=== PATIENT | female | born 1950 | race Caucasian/White ===

== ENCOUNTER 2017-03-07 11:28 | Inpatient (IN) | payer MEDICARE ==
[~2017-03-07] VITALS: Ht 175.3 cm; Wt 68.9 kg
[2017-03-07] VITALS (9 sets, daily range): BP systolic 124–234; BP diastolic 71–95; PULSE 73–104; RESP 15–17; TEMP 97.8–98.4; O2SAT 97–100
[2017-03-07] MEDS ORDERED: ASPI1TAB57 PO (11:44)
[2017-03-07] MEDS ORDERED: ESTROGEN PO (11:52)
[2017-03-07] MEDS ORDERED: LOSA25TA PO (11:52)
[2017-03-07] MEDS ORDERED: MEDR2.5 PO (11:52)
[2017-03-07] MEDS ORDERED: ANTIVERT PO (11:52)
[2017-03-07] MEDS ORDERED: HYDR25TA5 PO (11:52)
[2017-03-07] MEDS ORDERED: SODIUM CHLORIDE 0.9% FLUSH 10 ML FLUSH IVF PRN (12:00)
[2017-03-07] MEDS ORDERED: NITROGLYCERIN 0.4 MG SL 25 TABS/BTL SL ONE (12:00)
[2017-03-07 12:07] LABS: AUTOMATED NEUTROPHIL # 4.2 TH/MM3 (1.8-7.7); BASOPHIL # 0.1 TH/MM3 (0-0.2); BASOPHIL % 0.8 % (0.0-2.0); EOSINOPHIL # 0.2 TH/MM3 (0-0.4); EOSINOPHIL % 1.8 % (0.0-4.0); HEMATOCRIT 41.5 % (35.0-46.0); HEMOGLOBIN 14.2 GM/DL (11.6-15.3); LYMPHOCYTE # 3.2 TH/MM3 (1.0-4.8); MEAN CELL VOLUME 94.5 FL (80.0-100.0); MEAN CORPUSCULAR HEMOGLOBIN 32.3 PG (27.0-34.0); MEAN CORPUSCULAR HGB CONC 34.1 % (32.0-36.0); MEAN PLATELET VOLUME 7.7 FL (7.0-11.0); MONO % 9.6 % (0.0-8.0); MONOCYTE # 0.8 TH/MM3 (0-0.9); NEUT % 49.8 % (16.0-70.0); PLATELET COUNT 373 TH/MM3 (150-450); RED BLOOD COUNT 4.39 MIL/MM3 (4.00-5.30); RED CELL DISTRIBUTION WIDTH 13.1 % (11.6-17.2); WHITE BLOOD COUNT 8.5 TH/MM3 (4.0-11.0)
[2017-03-07 12:14] LABS: PROTHROMBIN TIME - PATIENT 10.6 SEC (9.8-11.6)
[2017-03-07 12:20] LABS: BICARBONATE 26.3 MEQ/L (21.0-32.0); CALCIUM 8.9 MG/DL (8.5-10.1); CREATININE 0.85 MG/DL (0.50-1.00); MAGNESIUM 2.1 MG/DL (1.5-2.5)
[2017-03-07 12:24] LABS: TROPONIN I 0.02 NG/ML (0.02-0.05)
--- NOTE | 2017-03-07 12:29 | PD ---
HPI Chief Complaint: Chest Pain Time Seen by Provider: 11:36 Travel History International Travel<30 days: No Contact w/Intl Traveler<30days: No Traveled to known affect area: No History of Present Illness HPI 66-year-old female that presents to the ED for evaluation of left sided chest pain to raise to the left arm. Per patient she's had this for about 2 hours. Per patient she was getting sign out of the hotel when she started developing the pain. Per patient he felt more like she had to burp than actual pain. Per patient she didn't think much of it and she continue her daily routines. Per patient she went to the the trying to race and she actually was given a drop of her so she can go shopping and then go to the raise but by the time she got there the pain had increased and was more pressure-like. Per patient he still felt like she has to burp he was 9 out of 10. She took 3 baby aspirin with improvement of her symptoms to 5 out of 10. Per patient she still feels like it is present. Sputum like a pressure. No shortness of breath with it. She tells me she does follow with the [facility] and has had an echocardiogram that showed some mitral regurgitation but no other acute disease. She had a stress test when she was 50 years old. She has not had one since. She does have a history of high blood pressure takes medications for it. She states that her cholesterol is borderline. She does have a family history of heart disease. He denies any history of chest pain before other than when she was 50. She does tell me that she is an anxious person she doesn' t always also related to that. Per patient she did have a bout of diarrhea today. She has only to codeine and terazosin. Denies any history of smoking. No injuries or trauma. PFSH Past Medical History Anxiety: Yes Cardiovascular Problems: Yes (HEART MURMUR, MITRAL REGURG) High Cholesterol: Yes Diabetes: Yes Patient Takes Glucophage: Yes Diverticulitis: Yes Gastrointestinal Disorders: Yes (IBS) GERD: Yes Immune Disorder: Yes Family History Family Myocardial Infarction: Yes Social History Alcohol Use: Yes (occ) Tobacco Use: No Substance Use: No Allergies-Medications (Allergen,Severity, Reaction): Coded Allergies: codeine (Verified Allergy, Unknown, 03/07/17) terazosin (Verified Allergy, Unknown, 03/07/17) Uncoded Allergies: mycins (Adverse Reaction, Unknown, 03/07/17) Reported Meds & Prescriptions Reported Meds & Active Scripts Active Reported [Antivert] Unknown Dose PO DAILY PRN Provera (Medroxyprogesterone Acetate) 2.5 Mg Tab 2.5 Mg PO DAILY Start day 21 [Estrogen] 0.5 Mg PO DAILY Losartan (Losartan Potassium) 25 Mg Tab 25 Mg PO DAILY Hydrochlorothiazide 25 Mg Tab 25 Mg PO DAILY Aspirin 81 (Aspirin) 81 Mg Tabdr 81 Mg PO DAILY Review of Systems Except as stated in HPI: all other systems reviewed are Neg Physical Exam Narrative GENERAL: SKIN: Warm and dry. HEAD: Atraumatic. Normocephalic. EYES: Pupils equal and round. No scleral icterus. No injection or drainage. ENT: No nasal bleeding or discharge. Mucous membranes pink and moist. Tongue is midline. No uvula deviation. NECK: Trachea midline. No JVD. CARDIOVASCULAR: Regular rate and rhythm. No murmurs, S3, S4. Chest pain not reproducible with touch. RESPIRATORY: No accessory muscle use. Clear to auscultation. Breath sounds equal bilaterally. GASTROINTESTINAL: Abdomen soft, non-tender, nondistended. Hepatic and splenic margins not palpable. MUSCULOSKELETAL: Extremities without clubbing, cyanosis, or edema. No obvious deformities. Full range of motion of the upper and lower extremities bilaterally. 2+ pulses bilaterally. NEUROLOGICAL: Awake and alert. No obvious cranial nerve deficits. Motor grossly within normal limits. Five out of 5 muscle strength in the arms and legs. Normal speech. PSYCHIATRIC: Appropriate mood and affect; insight and judgment normal. Data Data Last Documented VS Vital Signs Date Time Temp Pulse Resp B/P (MAP) Pulse Ox O2 Delivery O2 Flow Rate FiO2 03/07/17 16:00 104 15 176/77 (110) 100 Room Air 03/07/17 11:29 98.0 Orders Orders Electrocardiogram (03/07/17 11:50) Basic Metabolic Panel (Bmp) (03/07/17 11:50) Ckmb (Isoenzyme) Profile (03/07/17 11:50) Complete Blood Count With Diff (03/07/17 11:50) Magnesium (Mg) (03/07/17 11:50) Prothrombin Time / Inr (Pt) (03/07/17 11:50) Act Partial Throm Time (Ptt) (03/07/17 11:50) Troponin I (03/07/17 11:50) Lipase (03/07/17 11:50) Chest, Single Ap (03/07/17 11:50) Ecg Monitoring (03/07/17 11:50) Bilateral Bp Monitoring (03/07/17 11:50) Iv Access Insert/Monitor (03/07/17 11:50) Oximetry (03/07/17 11:50) Oxygen Administration (03/07/17 11:50) Sodium Chloride 0.9% Flush (Ns Flush) (03/07/17 12:00) Nitroglycerin Sl (Nitrostat Sl) (03/07/17 12:00) Troponin I (03/07/17 14:55) Electrocardiogram (03/07/17 ) Ckmb (Isoenzyme) Profile (03/07/17 15:35) Nitroglycerin 2% Oint (Nitroglycerin 2% (03/07/17 15:45) Heparin-D5w 25,000 U/250 Ml (Heparin-D5w (03/07/17 16:15) Act Partial Throm Time (Ptt) (03/07/17 16:08) Prothrombin Time / Inr (Pt) (03/07/17 16:08) Cbc No Diff, Includes Plts (03/07/17 16:08) Cbc No Diff, Includes Plts (03/10/17 06:00) Act Partial Throm Time (Ptt) (03/07/17 23:08) Occult Blood (Hemoccult) Stool (03/07/17 16:08) Admit Order (Ed Use Only) (03/07/17 16:25) Consult Cardiology (03/07/17 ) Labs Laboratory Tests Test 03/07/17 11:55 03/07/17 14:40 White Blood Count 8.5 TH/MM3 Red Blood Count 4.39 MIL/MM3 Hemoglobin 14.2 GM/DL Hematocrit 41.5 % Mean Corpuscular Volume 94.5 FL Mean Corpuscular Hemoglobin 32.3 PG Mean Corpuscular Hemoglobin Concent 34.1 % Red Cell Distribution Width 13.1 % Platelet Count 373 TH/MM3 Mean Platelet Volume 7.7 FL Neutrophils (%) (Auto) 49.8 % Lymphocytes (%) (Auto) 38.0 % Monocytes (%) (Auto) 9.6 % Eosinophils (%) (Auto) 1.8 % Basophils (%) (Auto) 0.8 % Neutrophils # (Auto) 4.2 TH/MM3 Lymphocytes # (Auto) 3.2 TH/MM3 Monocytes # (Auto) 0.8 TH/MM3 Eosinophils # (Auto) 0.2 TH/MM3 Basophils # (Auto) 0.1 TH/MM3 CBC Comment DIFF FINAL Differential Comment Prothrombin Time 10.6 SEC Prothromb Time International Ratio 1.0 RATIO Activated Partial Thromboplast Time 26.2 SEC Blood Urea Nitrogen 14 MG/DL Creatinine 0.85 MG/DL Random Glucose 141 MG/DL Calcium Level 8.9 MG/DL Magnesium Level 2.1 MG/DL Sodium Level 138 MEQ/L Potassium Level 3.7 MEQ/L Chloride Level 103 MEQ/L Carbon Dioxide Level 26.3 MEQ/L Anion Gap 9 MEQ/L Estimat Glomerular Filtration Rate 67 ML/MIN Total Creatine Kinase 85 U/L Troponin I 0.02 NG/ML 1.25 NG/ML Lipase 183 U/L MDM Medical Decision Making Medical Screen Exam Complete: Yes Emergency Medical Condition: Yes Medical Record Reviewed: Yes Interpretation(s) EKG shows sinus rhythm with no sign of acute ST elevation or ischemia. Read by me and attending. CBC & BMP Diagram 03/07/17 11:55 Calcium Level 8.9, Magnesium Level 2.1 Lipase within normal limits. troponin negative and CKMB negative Second troponin 1.25 second EKG unchanged from prior. Differential Diagnosis Chest pain versus ACS versus a typical chest pain versus pancreatitis versus gastritis Narrative Course 66-year-old female that presents to the ED for evaluation of chest pain. Patient was properly examined and was found to have signs and symptoms concerning for possible ACS. Labs and imaging were ordered. Labs and imaging were essentially unremarkable at this time. She was given nitroglycerin with good results. Patient was found to be hypertensive initially. Labs and imaging were negative initially. Did have a long discussion with family and family about admission to the chest pain center for further evaluation as she does have multiple risk factors and concerning for ACS. She wanted to talk to her family about this. She apparently actually got a hold of her own [facility] in [place] Dr. Signor nunez but she was only answer by a PA who recommended that she get a second troponin and the second troponin is negative she can follow-up tomorrow in their office. I do recommend that she still gets admitted for further evaluation but she had this time prefers to the second troponin. I ordered a second troponin 3 hours apart and came back positive at 1.25. Second EKG was done as well that did not show any sign of ST elevations or new changes on the EKG. Case was discussed in my attending who agrees with plan. Patient was given Nitropaste. Patient still having some discomfort but per patient 2 out of 10. Call was placed to cardiology and medical team. DR Leonard came and evaluated the patient, will take to cath today. heparin started. Dr Delarosa agrees to admission. Diagnosis Primary Impression: NSTEMI (non-ST elevated myocardial infarction) Admitting Information Admitting Physician Requests: Admit Chucky Gongora Mar 07, 2017 12:29
--- NOTE | 2017-03-07 12:42 | RADRPT ---
EXAM DATE/TIME: 03/07/2017 11:55 [facility] COMPARISON: No previous studies available for comparison. INDICATIONS : Chest pain that radiated down left arm. MEDICAL HISTORY : Hypertension. Hypercholesterolemia. SURGICAL HISTORY : None. ENCOUNTER: Initial ACUITY: 1 day PAIN SCORE: 6/10 LOCATION: Left chest FINDINGS: A single view of the chest demonstrates the lungs to be symmetrically aerated without evidence of mas s, infiltrate or effusion. The cardiomediastinal contours are unremarkable. Osseous structures are intact. CONCLUSION: No acute disease. Leobardo Nance MD on March 07, 2017 at 12:40 Board Certified Radiologist. This report was verified electronically.
[2017-03-07] MEDS ORDERED: IOHEXOL 350 MG/ML 100 ML BTL (for Cath Lab) OTHER ONE (15:24)
[2017-03-07] MEDS ORDERED: NITROGLYCERIN 2% OINT 1 GM PACKET TOPICAL ONE (15:45)
--- NOTE | 2017-03-07 16:01 | PD.CONS ---
HPI Consult Requested By Primary Care Physician No Primary Care Physician History of Present Illness 66-year-old female with pmhx HTN, HLD, MR that presents to the ED for evaluation of left sided chest pain for about 2 hours. Per patient she was getting sign out of the hotel when she started developing the pain. She tells me she does follow with the [facility] in [place]. Denies any history of smoking. No injuries or trauma. Reports a lot of stress lately. 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 EKG unremarkable. Troponin elevated. Cardiology consulted for further management and evaluation. Review of Systems Consitutional: DENIES: Fatigue, Fever, Chills, Weight gain, Weight loss Eyes: DENIES: Amaurosis Fug[place], Change in vision HEENT: DENIES: Lightheadedness, Change in hearing Respiratory: DENIES: See HPI, Cough, Snoring, Shortness of breath, Wheezing, Sputum production Cardiovascular: COMPLAINS OF: See HPI Gastrointestinal: DENIES: Nausea, Vomiting, Change in bowel habits, Reflux, Bloody stools, Melena Genitourinary: DENIES: Urinary incontinence, Difficulty voiding Integumentary: DENIES: Rash Neurologic: DENIES: Tingling or numbness, Memory problems, Poor Balance, Stroke symptoms Musculoskeletal: DENIES: Joint pain, Muscle pain, Limited range of motion, Back pain Psychiatric: DENIES: Anxiety, Depression, Sleep disturbances Hematologic: DENIES: Bruising tendencies, Bleeding tendencies Endocrine: DENIES: Weight gain, Weight loss, Thyroid disease Past Family Social History Allergies: Coded Allergies: codeine (Verified Allergy, Unknown, 03/07/17) terazosin (Verified Allergy, Unknown, 03/07/17) Uncoded Allergies: mycins (Adverse Reaction, Unknown, 03/07/17) Past Medical History HTN HLD Reported Medications Reported Meds & Active Scripts Active Reported [Antivert] Unknown Dose PO DAILY PRN Provera (Medroxyprogesterone Acetate) 2.5 Mg Tab 2.5 Mg PO DAILY Start day 21 [Estrogen] 0.5 Mg PO DAILY Losartan (Losartan Potassium) 25 Mg Tab 25 Mg PO DAILY Hydrochlorothiazide 25 Mg Tab 25 Mg PO DAILY Aspirin 81 (Aspirin) 81 Mg Tabdr 81 Mg PO DAILY Active Ordered Medications Current Medications Medications (Trade) Dose Ordered Sig/Ugo Route Start Time Stop Time Status Last Admin (NS Flush) 2 ml UNSCH PRN IVF 03/07/17 12:00 Social History No smoking No alcohol No illicit drug use Physical Exam Vital Signs Vital Signs Date Time Temp Pulse Resp B/P (MAP) Pulse Ox O2 Delivery O2 Flow Rate FiO2 03/07/17 11:53 97 Room Air 03/07/17 11:53 88 15 179/86 (117) 98 Room Air 03/07/17 11:42 100 Room Air 03/07/17 11:38 17 Room Air 03/07/17 11:29 98.0 85 16 234/95 (141) 98 Physical Exam GENERAL: Well-nourished, well-developed patient. SKIN: Warm and dry. HEAD: Normocephalic. EYES: No scleral icterus. No injection or drainage. NECK: Supple, trachea midline. No JVD or lymphadenopathy. CARDIOVASCULAR: Regular rate and rhythm without murmurs, gallops, or rubs. RESPIRATORY: Breath sounds equal bilaterally. No accessory muscle use. GASTROINTESTINAL: Abdomen soft, non-tender, nondistended. EXTREMITIES: No cyanosis, or edema. NEUROLOGICAL: Awake, alert, and oriented x 3. Non-focal. Laboratory Laboratory Tests Test 03/07/17 11:55 03/07/17 14:40 White Blood Count 8.5 Red Blood Count 4.39 Hemoglobin 14.2 Hematocrit 41.5 Mean Corpuscular Volume 94.5 Mean Corpuscular Hemoglobin 32.3 Mean Corpuscular Hemoglobin Concent 34.1 Red Cell Distribution Width 13.1 Platelet Count 373 Mean Platelet Volume 7.7 Neutrophils (%) (Auto) 49.8 Lymphocytes (%) (Auto) 38.0 Monocytes (%) (Auto) 9.6 Eosinophils (%) (Auto) 1.8 Basophils (%) (Auto) 0.8 Neutrophils # (Auto) 4.2 Lymphocytes # (Auto) 3.2 Monocytes # (Auto) 0.8 Eosinophils # (Auto) 0.2 Basophils # (Auto) 0.1 CBC Comment DIFF FINAL Differential Comment Prothrombin Time 10.6 Prothromb Time International Ratio 1.0 Activated Partial Thromboplast Time 26.2 Blood Urea Nitrogen 14 Creatinine 0.85 Random Glucose 141 Calcium Level 8.9 Magnesium Level 2.1 Sodium Level 138 Potassium Level 3.7 Chloride Level 103 Carbon Dioxide Level 26.3 Anion Gap 9 Estimat Glomerular Filtration Rate 67 Total Creatine Kinase 85 Troponin I 0.02 1.25 Lipase 183 Result Diagram: 03/07/17 1155 03/07/17 1155 Imaging Last Impressions Chest X-Ray 03/07/17 1150 Signed Impressions: Service Date/Time: Tuesday, March 07, 2017 11:55 - CONCLUSION: No acute disease. Leobardo Nance MD Assessment and Plan Problem List: (1) NSTEMI (non-ST elevated myocardial infarction) ICD Codes: I21.4 - Non-ST elevation (NSTEMI) myocardial infarction Plan: 66 y/o M presenting with chest pain and elevated Troponin. NSTEMI. She continues with the chest pain. Afebrile and hemodynacmially stable. Denies bleeding issues or schedule surgeries. Given NSTEMI the recomendation will be primary PCI. Risk benefits of LHC +/- PCI including but not limited to bleeding , stroke, neurovascular trauma, kidney injury, emergent CABG and have been explain to her. She understands risks and is willing to proceed. Recs: ASA Heparin Keep NPO for LHC +/- PCI today Chirag Valdivia MD Mar 07, 2017 16:01
[2017-03-07] MEDS ORDERED: HEPARIN-D5W 25,000 U/250 ML 250 ML IV PRN ×2 (16:15→16:45)
[2017-03-07] MEDS ORDERED: ACETAMINOPHEN 325 MG TAB PO PRN (16:45)
[2017-03-07] MEDS ORDERED: NITROGLYCERIN 0.4 MG SL 25 TABS/BTL SL PRN (16:45)
[2017-03-07] MEDS ORDERED: SODIUM CHLORIDE 0.9% FLUSH 10 ML FLUSH IV FLUSH PRN ×2 (16:45)
[2017-03-07] MEDS ORDERED: ONDANSETRON HCL 4 MG/2 ML VIAL IVP PRN (16:45)
[2017-03-07] MEDS ORDERED: LACTULOSE SYRUP 20 GM/30 ML CUP PO PRN (16:45)
[2017-03-07] MEDS ORDERED: MAGNESIUM HYDROXIDE SUSP 30 ML CUP PO PRN (16:45)
[2017-03-07] MEDS ORDERED: ZOLPIDEM TARTRATE 5 MG TAB PO PRN (16:45)
[2017-03-07] MEDS ORDERED: METOCLOPRAMIDE HCL 10 MG/2 ML VIAL IV PUSH PRN (16:45)
[2017-03-07] MEDS ORDERED: BISACODYL 10 MG SUPP RECTAL PRN (16:45)
[2017-03-07] MEDS ORDERED: MORPHINE SULFATE 2 MG/ML INJ IV PUSH PRN ×3 (16:45)
[2017-03-07] MEDS ORDERED: oxyCODONE/ACETAMINOPHEN 5 MG/325 MG TAB PO PRN (16:45)
[2017-03-07] MEDS ORDERED: ALPRAZolam 0.25 MG TAB PO PRN (16:45)
[2017-03-07] MEDS ORDERED: oxyCODONE/ACETAMINOPHEN 10 MG/325 MG TAB PO PRN (16:45)
[2017-03-07] MEDS ORDERED: NALOXONE HCL 0.4 MG/ML AMP IV PUSH PRN (16:45)
[2017-03-07] MEDS ORDERED: cloNIDine HCL 0.1 MG TAB PO PRN (16:45)
[2017-03-07] MEDS ORDERED: SENNOSIDES 8.6 MG TAB PO PRN (16:45)
[2017-03-07] MEDS ORDERED: DICYCLOMINE HCL 10 MG CAP PO PRN (17:00)
--- NOTE | 2017-03-07 17:16 | HHI.HP ---
[facility] No Primary Care Physician Admission Diagnosis NSTEMI Diagnoses: (1) NSTEMI (non-ST elevated myocardial infarction) Diagnosis: Principal (2) Hypertension Diagnosis: Principal (3) Hypercholesterolemia Diagnosis: Secondary (4) Irritable bowel syndrome Chief Complaint: Chest pain Travel History International Travel<30 Days: No Contact w/Intl Traveler <30 Da: No Traveled to Known Affected Are: No History of Present Illness Patient is a 66-year-old female visiting the area from [place]. Who presents to the emergency department today for evaluation of left-sided chest pain. Patient states that the chest pain started about 2 hours prior to presentation. Patient had left her hotel room when she started developing pain left side of her chest. She states it felt like she had to burp more than actual pain. Patient really did not think much of it continued her daily routines.. Patient states she went to the trial race at the track she was about to drop off her and she go shopping that the pain had increased and was more pressure-like. When his height is 9 out of 10. She took 3 baby aspirin with some improvement of her symptoms pain going down to 5 out of 10. 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 Has a history of high blood pressure and high cholesterol she has family history of heart disease in her mother. She has been more anxious than usual lately. Also has irritable bowel syndrome and has been having diarrhea today has allergies to codeine and terazosin. PATIENT'S FIRST TROPONIN WAS NEGATIVE BUT 2ND TROPONIN IS POSITIVE PATIENT WILL BE ADMITTED FOR NSTEMI AND GO FOR CARDIAC CATH TODAY WITH DR MEHTA Review of Systems Constitutional: COMPLAINS OF: Diaphoretic episodes, Fatigue, DENIES: Fever, Weight gain, Weight loss, Chills, Dizziness, Change in appetite, Night Sweats Endocrine: DENIES: Abnorml menstrual pattern, Heat/cold intolerance, Polydipsia Eyes: DENIES: Blurred vision, Diplopia, Eye inflammation, Eye pain, Vision loss , Photosensitivity Ears, nose, mouth, throat: COMPLAINS OF: Vertigo, DENIES: Tinnitus, Hearing loss, Nasal discharge, Oral lesions, Throat pain, Running Nose, Epistaxis, Sinus Pain, Toothache Respiratory: DENIES: Apneas, Cough, Snoring, Wheezing, Hemoptysis, Sputum production, Shortness of breath Cardiovascular: COMPLAINS OF: Chest pain, DENIES: Palpitations, Syncope, Dyspnea on Exertion, PND, Lower Extremity Edema, Orthopnea Gastrointestinal: COMPLAINS OF: Nausea, DENIES: Abdominal pain, Black stools, Bloody stools, Constipation, Diarrhea, Vomiting, Difficulty Swallowing, Anorexia Genitourinary: DENIES: Abnormal vaginal bleeding, Dysmenorrhea, Dyspareunia, Urgency, Hematuria, Dysuria, Nocturia Musculoskeletal: DENIES: Joint pain, Muscle aches, Stiffness, Joint Swelling, Back pain Integumentary: DENIES: Abnormal pigmentation, Pruritus, Rash, Nail changes, Breast masses, Breast skin changes Hematologic/lymphatic: DENIES: Bruising, Lymphadenopathy Immunologic/allergic: DENIES: Eczema, Urticaria Neurologic: DENIES: Abnormal gait, Headache, Localized weakness, Paresthesias, Seizures, Speech Problems Psychiatric: COMPLAINS OF: Anxiety, DENIES: Confusion, Mood changes, Depression , Hallucinations, Agitation, Homicidal Ideation, Delusions Except as stated in HPI: all other systems reviewed are Neg Past Family Social History Past Medical History ANXIETY HYPERTENSION HYPERLIPIDEMIA IBS DIVERTICULOSIS GERD VERTIGO Past Surgical History TONSILLECTOMY WISDOM TEETH REMOVAL ENDOMETRIAL ABLATION D/C Reported Medications Reported Meds & Active Scripts Active Reported [Antivert] Unknown Dose PO DAILY PRN Provera (Medroxyprogesterone Acetate) 2.5 Mg Tab 2.5 Mg PO DAILY Start day 21 [Estrogen] 0.5 Mg PO DAILY Losartan (Losartan Potassium) 25 Mg Tab 25 Mg PO DAILY Hydrochlorothiazide 25 Mg Tab 25 Mg PO DAILY Aspirin 81 (Aspirin) 81 Mg Tabdr 81 Mg PO DAILY Allergies: Coded Allergies: codeine (Verified Allergy, Unknown, 03/07/17) terazosin (Verified Allergy, Unknown, 03/07/17) Uncoded Allergies: mycins (Adverse Reaction, Unknown, 03/07/17) Active Ordered Medications Current Medications Sodium Chloride (NS Flush) 2 ml UNSCH PRN IVF FLUSH AFTER USING IV ACCESS; Start 03/07/17 at 12:00 Nitroglycerin (Nitrostat Sl) 0.4 mg ONCE ONCE SL Last administered on at 12:01; Start 03/07/17 at 12:00; Stop 03/07/17 at 12:01; Status DC Nitroglycerin (Nitroglycerin 2% Oint) 1 inch ONCE ONCE TOPICAL Last administered on 03/07/17at 16:37; Start 03/07/17 at 15:45; Stop 03/07/17 at 15:46; Status DC Heparin Sodium/ Dextrose 250 ml @ 9 mls/hr TITRATE PRN IV Coagulation Management Last administered on 03/07/17at 16:32; Start 03/07/17 at 16:15 Clonidine (Catapres) 0.1 mg Q4H PRN PO SBP>160, DBP>90; Start 03/07/17 at 16:45 Sodium Chloride (NS Flush) 2 ml UNSCH PRN IV FLUSH FLUSH AFTER USING IV ACCESS ; Start 03/07/17 at 16:45; Status UNV Sodium Chloride (NS Flush) 2 ml BID IV FLUSH ; Start 03/07/17 at 21:00; Status UNV Acetaminophen (Tylenol) 650 mg Q4H PRN PO TEMP > 100.4; Start 03/07/17 at 16:45 ; Status UNV Ondansetron HCl (Zofran Inj) 4 mg Q6H PRN IVP NAUSEA OR VOMITING; Start at 16:45; Status UNV Metoclopramide HCl (Reglan Inj) 5 mg Q6H PRN IV PUSH NAUSEA OR VOMITING; Start 03/07/17 at 16:45; Status UNV Zolpidem Tartrate (Ambien) 5 mg HS PRN PO INSOMNIA; Start 03/07/17 at 16:45; Status UNV Acetaminophen (Tylenol) 650 mg Q6H PRN PO PAIN SCALE 1 TO 2; Start 03/07/17 at 16:45; Status UNV Oxycodone/ Acetaminophen (Percocet 5-325 Mg) 1 tab Q6H PRN PO PAIN SCALE 3 TO 5; Start 03/07/17 at 16:45; Status UNV Oxycodone/ Acetaminophen (Percocet 10-325 Mg) 1 tab Q6H PRN PO PAIN SCALE 6 TO 10; Start 03/07/17 at 16:45; Status UNV Morphine Sulfate (Morphine Inj) 2 mg Q3H PRN IV PUSH Pain 3-5; if unable to take PO; Start 03/07/17 at 16:45; Status UNV Morphine Sulfate (Morphine Inj) 4 mg Q3H PRN IV PUSH Pain 6-10;if unable to take PO; Start 03/07/17 at 16:45; Status UNV Morphine Sulfate (Morphine Inj) 4 mg Q3H PRN IV PUSH BREAKTHROUGH PAIN; Start 03/07/17 at 16:45; Status UNV Naloxone HCl (Narcan Inj) 0.4 mg UNSCH PRN IV PUSH SEE LABEL COMMENTS; Start at 16:45; Status UNV Senna/Docusate Sodium (Edna-Colace) 1 tab BID PO ; Start 03/07/17 at 21:00; Status UNV Magnesium Hydroxide (Milk Of Magnesia Liq) 30 ml Q12H PRN PO Mild constipation ; Start 03/07/17 at 16:45; Status UNV Sennosides (Senokot) 17.2 mg Q12H PRN PO Moderate constipation; Start 03/07/17 at 16:45; Status UNV Bisacodyl (Dulcolax Supp) 10 mg DAILY PRN RECTAL SEVERE CONSITIPATION; Start at 16:45; Status UNV Lactulose (Lactulose Liq) 30 ml DAILY PRN PO SEVERE CONSITIPATION; Start at 16:45; Status UNV Sodium Chloride (NS Flush) 2 ml BID IV FLUSH ; Start 03/07/17 at 21:00; Status UNV Sodium Chloride (NS Flush) 2 ml UNSCH PRN IV FLUSH FLUSH AFTER USING IV ACCESS ; Start 03/07/17 at 16:45; Status UNV Aspirin (Ecotrin Ec) 325 mg DAILY PO ; Start 03/08/17 at 09:00; Status UNV Nitroglycerin (Nitroglycerin 2% Oint) 1 inch Q6H TOP ; Start 03/07/17 at 16:45; Status UNV Nitroglycerin (Nitrostat Sl) 0.4 mg Q5M PRN SL CHEST PAIN; Start 03/07/17 at 16: 45; Status UNV Alprazolam (Xanax) 0.25 mg Q8H PRN PO ANXIETY; Start 03/07/17 at 16:45; Status UNV Atorvastatin Calcium (Lipitor) 10 mg HS PO ; Start 03/07/17 at 21:00; Status UNV Heparin Sodium/ Dextrose 250 ml @ 9.3 mls/hr TITRATE PRN IV Coagulation Management; Start 03/07/17 at 16:45; Status UNV Family History Father at age 40 with her complications from rheumatic fever and coronary issues after open heart surgery Mother at age 94 with diabetes hypertension coronary artery disease and history of RI Physical Exam Vital Signs Vital Signs Date Time Temp Pulse Resp B/P (MAP) Pulse Ox O2 Delivery O2 Flow Rate FiO2 03/07/17 16:00 104 15 176/77 (110) 100 Room Air 03/07/17 14:00 101 17 156/76 (102) 100 Room Air 03/07/17 11:53 97 Room Air 03/07/17 11:53 88 15 179/86 (117) 98 Room Air 03/07/17 11:42 100 Room Air 03/07/17 11:38 17 Room Air 03/07/17 11:29 98.0 85 16 234/95 (141) 98 Physical Exam GENERAL: Wake alert and oriented talkative and cooperative a little anxious may be in mild distress SKIN: Warm and dry. No obvious rashes HEAD: Atraumatic. Normocephalic. EYES: Pupils equal and round. No scleral icterus. No injection or drainage. Extraocular muscles intact ENT: No nasal bleeding or discharge. Mucous membranes pink and moist. Tongue is midline NECK: Trachea midline. No JVD. Supple CARDIOVASCULAR: Regular rate and rhythm. S1-S2 no S3-S4 no heave or thrill or rub or gallop RESPIRATORY: No accessory muscle use. Clear to auscultation. Breath sounds equal bilaterally. GASTROINTESTINAL: Abdomen soft, non-tender, nondistended. Hepatic and splenic margins not palpable. MUSCULOSKELETAL: Extremities without clubbing, cyanosis, or edema. No obvious deformities. NEUROLOGICAL: Awake and alert. No obvious cranial nerve deficits. Motor grossly within normal limits. Five out of 5 muscle strength in the arms and legs. Normal speech. PSYCHIATRIC: Appropriate mood and affect; insight and judgment normal. Laboratory Laboratory Tests Test 03/07/17 11:55 03/07/17 14:40 White Blood Count 8.5 Red Blood Count 4.39 Hemoglobin 14.2 Hematocrit 41.5 Mean Corpuscular Volume 94.5 Mean Corpuscular Hemoglobin 32.3 Mean Corpuscular Hemoglobin Concent 34.1 Red Cell Distribution Width 13.1 Platelet Count 373 Mean Platelet Volume 7.7 Neutrophils (%) (Auto) 49.8 Lymphocytes (%) (Auto) 38.0 Monocytes (%) (Auto) 9.6 Eosinophils (%) (Auto) 1.8 Basophils (%) (Auto) 0.8 Neutrophils # (Auto) 4.2 Lymphocytes # (Auto) 3.2 Monocytes # (Auto) 0.8 Eosinophils # (Auto) 0.2 Basophils # (Auto) 0.1 CBC Comment DIFF FINAL Differential Comment Prothrombin Time 10.6 Prothromb Time International Ratio 1.0 Activated Partial Thromboplast Time 26.2 Blood Urea Nitrogen 14 Creatinine 0.85 Random Glucose 141 Calcium Level 8.9 Magnesium Level 2.1 Sodium Level 138 Potassium Level 3.7 Chloride Level 103 Carbon Dioxide Level 26.3 Anion Gap 9 Estimat Glomerular Filtration Rate 67 Total Creatine Kinase 85 Troponin I 0.02 1.25 Lipase 183 Result Diagram: 03/07/17 1155 03/07/17 1155 Imaging Last Impressions Chest X-Ray 03/07/17 1150 Signed Impressions: Service Date/Time: Tuesday, March 07, 2017 11:55 - CONCLUSION: No acute disease. MD Sugar Kulkarni VTE Risk Assessment Sugar VTE Risk Assessment: Mod/High Risk (score >= 2) Caprini Risk Assessment Model Point Value = 1 Point Value = 2 Point Value = 3 Point Value = 5 Age 41-60 Minor surgery BMI > 25 kg/m2 Swollen legs Varicose veins or History of unexplained or recurrent spontaneous Oral contraceptives or hormone replacement Sepsis (< 1 month) Serious lung disease, including pneumonia (< 1 month) Abnormal pulmonary function Acute myocardial infarction Congestive heart failure (< 1 month) History of inflammatory bowel disease Medical patient at bed rest Age 61-74 Arthroscopic surgery Major open surgery (> 45 min) Laparoscopic surgery (> 45 min) Malignancy Confined to bed (> 72 hours) Immobilizing plaster cast Central venous access Age >= 75 History of VTE Family history of VTE Factor V Leiden Prothrombin [id number] Lupus anticoagulant Anticardiolipin antibodies Elevated serum homocysteine Heparin-induced thrombocytopenia Other congenital or acquired thrombophilia Stroke (< 1 month) Elective arthroplasty Hip, pelvis, or leg fracture Acute spinal cord injury (< 1 month) Prophylaxis Regimen Total Risk Factor Score Risk Level Prophylaxis Regimen 0-1 Low Early ambulation 2 Moderate Order ONE of the following: *Sequential Compression Device (SCD) *Heparin 5000 units SQ BID 3-4 Higher Order ONE of the following medications: *Heparin 5000 units SQ TID *Enoxaparin/Lovenox 40 mg SQ daily (WT < 150 kg, CrCl > 30 mL/min) *Enoxaparin/Lovenox 30 mg SQ daily (WT < 150 kg, CrCl > 10-29 mL/min) *Enoxaparin/Lovenox 30 mg SQ BID (WT < 150 kg, CrCl > 30 mL/min) AND/OR *Sequential Compression Device (SCD) 5 or more Highest Order ONE of the following medications: *Heparin 5000 units SQ TID (Preferred with Epidurals) *Enoxaparin/Lovenox 40 mg SQ daily (WT < 150 kg, CrCl > 30 mL/min) *Enoxaparin/Lovenox 30 mg SQ daily (WT < 150 kg, CrCl > 10-29 mL/min) *Enoxaparin/Lovenox 30 mg SQ BID (WT < 150 kg, CrCl > 30 mL/min) AND *Sequential Compression Device (SCD) Assessment and Plan Assessment and Plan Non-ST elevation RI with positive troponin will go for cardiac catheterization later today with Dr. Mehta Continue on blood pressure medications will more likely need to be on a beta danielle of an intervention is done and continue on an Prashant INHIBITOR or ARB ECHOcardiogram Continue on Aspirin and statin Hypertension continue on home medications Anxiety make medications available and medications for insomnia available Irritable bowel continue on Bentyl when necessary Benign positional vertigo continue on Antivert 25 mg by mouth 3 times a day scheduled Hyperlipidemia continue on statin Check a.m. 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 In the case of services not specified as inpatient-only, they are appropriately provided as inpatient services in accordance with the 2-midnight benchmark. Estimated LOS (days): 2 days is the estimated time the patient will need to remain in the hospital, assuming treatment plan goals are met and no additional complications. Post-Hospital Plan: Home Jose Ramon Delarosa DO Mar 07, 2017 17:16
[2017-03-07] MEDS ORDERED: VERAPAMIL HCL 5 MG/2 ML VIAL ONE (17:29)
[2017-03-07] MEDS ORDERED: HEPARIN-NS/PF INJ 1,000 ML ONE (17:29)
[2017-03-07] MEDS ORDERED: MIDAZOLAM HCL 2 MG/2 ML VIAL ONE ×2 (17:29→17:48)
[2017-03-07] MEDS ORDERED: HEPARIN SODIUM - IV 10,000 UNITS/10 ML VIAL ONE (17:30)
[2017-03-07] MEDS ORDERED: PANTOPRAZOLE SOD 40 MG DELAYED RELEASE TAB PO ONE (17:30)
[2017-03-07] MEDS ORDERED: NITROGLYCERIN INJ 5 ML ONE (17:30)
[2017-03-07] MEDS ORDERED: NITROGLYCERIN 1000 MCG/5 ML VIAL OTHER ONE (17:30)
[2017-03-07] MEDS ORDERED: HEPARIN - 10,000 UNITS/ML IV ADDITIVE IV ONE ×2 (17:30→18:00)
[2017-03-07] MEDS ORDERED: MIDAZOLAM HCL 2 MG/2 ML VIAL IV ONE ×8 (17:46→18:30)
[2017-03-07] MEDS ORDERED: VERAPAMIL HCL 5 MG/2 ML VIAL IV PUSH ONE (17:48)
[2017-03-07] MEDS ORDERED: MIDAZOLAM HCL 5 MG/5 ML VIAL ONE (17:56)
[2017-03-07] MEDS: NITROGLYCERIN 2% OINT 1 GM PACKET TOP SCH (18:00)
[2017-03-07] MEDS ORDERED: ADENOSINE STRESS TEST INJ 90 MG/30 ML VIAL ONE (18:01)
[2017-03-07] MEDS ORDERED: ADENOSINE STRESS TEST INJ 90 MG/30 ML VIAL OTHER ONE (18:08)
[2017-03-07] MEDS ORDERED: PRASUGREL 10 MG TAB ONE (18:48)
[2017-03-07] MEDS ORDERED: PRASUGREL 10 MG TAB PO ONE ×2 (18:51→19:00)
[2017-03-07] MEDS ORDERED: ONDANSETRON HCL 4 MG/2 ML VIAL IV PUSH PRN (19:00)
[2017-03-07] MEDS ORDERED: ATROPINE SULFATE 1 MG/ML VIAL IV PUSH PRN (19:00)
[2017-03-07] MEDS ORDERED: SODIUM CHLOR 0.9% 1000 ML INJ 1,000 ML IV SCH (19:00)
[2017-03-07] MEDS ORDERED: PILL SPLITTER OTHER PRN (19:15)
[2017-03-07] MEDS ORDERED: ATORVASTATIN 10 MG TAB PO SCH ×2 (21:00)
[2017-03-07] MEDS: DOCUSATE SODIUM 50 MG/SENNA 8.6 MG TAB PO SCH (21:00)
[2017-03-07] MEDS ORDERED: SODIUM CHLORIDE 0.9% FLUSH 10 ML FLUSH IV FLUSH SCH (21:00)
[2017-03-07] MEDS: SODIUM CHLORIDE 0.9% FLUSH 10 ML FLUSH IV FLUSH SCH (21:00)
[2017-03-07] MEDS: METOPROLOL TARTRATE 25 MG TAB PO SCH (21:34)
[2017-03-07] MEDS: MECLIZINE HCL 25 MG TAB PO SCH (21:37)
[2017-03-07 23:04] LABS: TROPONIN I 2.89 NG/ML (0.02-0.05)
[2017-03-07] MEDS: ACETAMINOPHEN 325 MG TAB PO PRN (23:15)
[2017-03-08] VITALS (18 sets, daily range): BP systolic 143–147; BP diastolic 54–78; PULSE 56–81; RESP 20; TEMP 98–98.4; O2SAT 97–98
[2017-03-08] MEDS: ACETAMINOPHEN 325 MG TAB PO PRN (03:51)
[2017-03-08] MEDS: NITROGLYCERIN 2% OINT 1 GM PACKET TOP SCH ×2 (06:00)
[2017-03-08 06:15] LABS: AUTOMATED NEUTROPHIL # 5.7 TH/MM3 (1.8-7.7); BASOPHIL # 0.1 TH/MM3 (0-0.2); BASOPHIL % 0.6 % (0.0-2.0); EOSINOPHIL # 0.1 TH/MM3 (0-0.4); EOSINOPHIL % 1.1 % (0.0-4.0); HEMATOCRIT 35.5 % (35.0-46.0); HEMOGLOBIN 11.9 GM/DL (11.6-15.3); LYMPH % 24.8 % (9.0-44.0); LYMPHOCYTE # 2.2 TH/MM3 (1.0-4.8); MEAN CELL VOLUME 93.6 FL (80.0-100.0); MEAN CORPUSCULAR HEMOGLOBIN 31.4 PG (27.0-34.0); MEAN CORPUSCULAR HGB CONC 33.6 % (32.0-36.0); MEAN PLATELET VOLUME 7.8 FL (7.0-11.0); MONO % 8.7 % (0.0-8.0); MONOCYTE # 0.8 TH/MM3 (0-0.9); NEUT % 64.8 % (16.0-70.0); PLATELET COUNT 330 TH/MM3 (150-450); WHITE BLOOD COUNT 8.8 TH/MM3 (4.0-11.0)
[2017-03-08] MEDS: MECLIZINE HCL 25 MG TAB PO SCH ×2 (06:19→14:49)
[2017-03-08 06:52] LABS: ALBUMIN 3.3 GM/DL (3.4-5.0); ALKALINE PHOSPHATASE 62 U/L (45-117); ALT (GPT) 29 U/L (10-53); AST (GOT) 21 U/L (15-37); BICARBONATE 23.9 MEQ/L (21.0-32.0); BLOOD UREA NITROGEN 12 MG/DL (7-18); CALCIUM 7.7 MG/DL (8.5-10.1); CHLORIDE 107 MEQ/L (98-107); CHOLESTEROL 221 MG/DL (120-200); CHOLESTEROL/ HDL RATIO 3.71 RATIO; CREATININE 0.47 MG/DL (0.50-1.00); FREE T4 1.09 NG/DL (0.76-1.46); GLOMERULAR FILTRATION RATE 133 ML/MIN (>89); GLUCOSE,RANDOM 112 MG/DL (74-106); HDL CHOLESTEROL 59.5 MG/DL (40.0-60.0); LDL CHOLESTEROL 138 MG/DL (0-99); MAGNESIUM 1.9 MG/DL (1.5-2.5); PHOSPHORUS 2.2 MG/DL (2.5-4.9); SODIUM (NA) 140 MEQ/L (136-145); TOTAL BILIRUBIN ADULT 0.5 MG/DL (0.2-1.0); TOTAL PROTEIN 5.9 GM/DL (6.4-8.2); TRIGLYCERIDES 116 MG/DL (42-150)
[2017-03-08 06:56] LABS: TROPONIN I 2.25 NG/ML (0.02-0.05)
[2017-03-08] MEDS ORDERED: SODIUM CHLOR 0.9% 1000 ML INJ 1,000 ML IV SCH (07:15)
[2017-03-08] MEDS ORDERED: ASPIRIN 81 MG CHEW TAB PO SCH (09:00)
[2017-03-08] MEDS ORDERED: PRASUGREL 10 MG TAB PO SCH (09:00)
[2017-03-08] MEDS ORDERED: LOSARTAN 25 MG TAB PO SCH (09:00)
[2017-03-08] MEDS ORDERED: ASPIRIN EC 325 MG TABEC PO SCH (09:00)
[2017-03-08] MEDS ORDERED: LISINOPRIL 5 MG TAB PO SCH (09:00)
[2017-03-08] MEDS ORDERED: PANTOPRAZOLE SOD 40 MG DELAYED RELEASE TAB PO SCH (09:00)
[2017-03-08] MEDS: SODIUM CHLORIDE 0.9% FLUSH 10 ML FLUSH IV FLUSH SCH (09:00)
[2017-03-08] MEDS ORDERED: ESTROGEN PO SCH (09:00)
[2017-03-08 09:50] LABS: HEMOGLOBIN A1C 5.6 % (4.3-6.0)
--- NOTE | 2017-03-08 09:52 | PD.CARD.PN ---
Subjective Subjective Remarks overnight events noted No chest pain track oozing from access site Objective Medications Current Medications Medications (Trade) Dose Ordered Sig/Ugo Route Start Time Stop Time Status Last Admin (Catapres) 0.1 mg Q4H PRN PO 03/07/17 16:45 (Tylenol) 650 mg Q4H PRN PO 03/07/17 16:45 03/08/17 03:51 (Reglan Inj) 5 mg Q6H PRN IV PUSH 03/07/17 16:45 (Ambien) 5 mg HS PRN PO 03/07/17 16:45 (Tylenol) 650 mg Q6H PRN PO 03/07/17 16:45 (Percocet 5-325 Mg) 1 tab Q6H PRN PO 03/07/17 16:45 03/08/17 06:37 (Percocet 10-325 Mg) 1 tab Q6H PRN PO 03/07/17 16:45 (Morphine Inj) 2 mg Q3H PRN IV PUSH 03/07/17 16:45 (Morphine Inj) 4 mg Q3H PRN IV PUSH 03/07/17 16:45 (Morphine Inj) 4 mg Q3H PRN IV PUSH 03/07/17 16:45 (Narcan Inj) 0.4 mg UNSCH PRN IV PUSH 03/07/17 16:45 (Edna-Colace) 1 tab BID PO 03/07/17 21:00 (Milk Of Magnesia Liq) 30 ml Q12H PRN PO 03/07/17 16:45 (Senokot) 17.2 mg Q12H PRN PO 03/07/17 16:45 (Dulcolax Supp) 10 mg DAILY PRN RECTAL 03/07/17 16:45 (Lactulose Liq) 30 ml DAILY PRN PO 03/07/17 16:45 (NS Flush) 2 ml BID IV FLUSH 03/07/17 21:00 03/07/17 21:00 (NS Flush) 2 ml UNSCH PRN IV FLUSH 03/07/17 16:45 (Nitrostat Sl) 0.4 mg Q5M PRN SL 03/07/17 16:45 (Xanax) 0.25 mg Q8H PRN PO 03/07/17 16:45 03/08/17 03:54 Heparin Sodium/ Dextrose 250 ml @ 9 mls/hr TITRATE PRN IV 03/07/17 16:45 (Antivert) 25 mg Q8HR PO 03/07/17 17:00 03/08/17 06:19 (Cozaar) 25 mg DAILY PO 03/08/17 09:00 (Bentyl) 10 mg TID PRN PO 03/07/17 17:00 (Protonix) 40 mg DAILY PO 03/08/17 09:00 (Aspirin Chew) 81 mg DAILY PO 03/08/17 09:00 (Effient) 10 mg DAILY PO 03/08/17 09:00 (Atropine Inj) 0.5 mg UNSCH PRN IV PUSH 03/07/17 19:00 (Zofran Inj) 4 mg Q4H PRN IV PUSH 03/07/17 19:00 (Lopressor) 12.5 mg BID PO 03/07/17 21:00 03/07/17 21:34 (Lipitor) 10 mg HS PO 03/07/17 21:00 03/07/17 21:33 (Pill Splitter) 1 ea UNSCH PRN OTHER 03/07/17 19:15 Vital Signs / I&O Vital Signs Date Time Temp Pulse Resp B/P (MAP) Pulse Ox O2 Delivery O2 Flow Rate FiO2 03/08/17 08:00 98.4 76 20 143/54 (83) 97 03/08/17 07:00 80 03/08/17 06:40 81 03/08/17 05:00 76 03/08/17 04:31 98.0 77 147/78 (101) 98 03/08/17 04:00 56 03/08/17 03:00 76 03/08/17 02:00 76 03/08/17 01:00 76 03/08/17 00:05 97 21 03/08/17 00:00 76 03/07/17 23:00 73 03/07/17 23:00 97.8 77 124/73 (90) 97 03/07/17 22:00 78 03/07/17 21:00 82 03/07/17 20:00 80 03/07/17 19:00 75 03/07/17 19:00 98.4 87 143/71 (95) 98 03/07/17 17:17 03/07/17 16:00 104 15 176/77 (110) 100 Room Air 1/7/18 14:00 101 17 156/76 (102) 100 Room Air 03/07/17 11:53 97 Room Air 03/07/17 11:53 88 15 179/86 (117) 98 Room Air 03/07/17 11:42 100 Room Air 03/07/17 11:38 17 Room Air 03/07/17 11:29 98.0 85 16 234/95 (141) 98 I/O 03/07/17 03/07/17 03/07/17 03/08/17 03/08/17 03/08/17 07:00 15:00 23:00 07:00 15:00 23:00 Intake Total 480 ml Output Total 400 ml Balance 80 ml Intake Oral 480 ml Output Urine Total 400 ml Physical Exam GENERAL: Well-nourished, well-developed patient. SKIN: Warm and dry. HEAD: Normocephalic. EYES: No scleral icterus. No injection or drainage. NECK: Supple, trachea midline. No JVD or lymphadenopathy. CARDIOVASCULAR: Regular rate and rhythm without murmurs, gallops, or rubs. RESPIRATORY: Breath sounds equal bilaterally. No accessory muscle use. GASTROINTESTINAL: Abdomen soft, non-tender, nondistended. EXTREMITIES: No cyanosis, or edema. Pulses throughout. NEUROLOGICAL: Awake, alert, and oriented x 3. Non-focal. Laboratory Laboratory Tests Test 03/07/17 11:55 03/07/17 14:40 03/07/17 22:06 03/08/17 04:32 White Blood Count 8.5 TH/MM3 8.8 TH/MM3 Red Blood Count 4.39 MIL/MM3 3.80 MIL/MM3 Hemoglobin 14.2 GM/DL 11.9 GM/DL Hematocrit 41.5 % 35.5 % Mean Corpuscular Volume 94.5 FL 93.6 FL Mean Corpuscular Hemoglobin 32.3 PG 31.4 PG Mean Corpuscular Hemoglobin Concent 34.1 % 33.6 % Red Cell Distribution Width 13.1 % 13.0 % Platelet Count 373 TH/MM3 330 TH/MM3 Mean Platelet Volume 7.7 FL 7.8 FL Neutrophils (%) (Auto) 49.8 % 64.8 % Lymphocytes (%) (Auto) 38.0 % 24.8 % Monocytes (%) (Auto) 9.6 % 8.7 % Eosinophils (%) (Auto) 1.8 % 1.1 % Basophils (%) (Auto) 0.8 % 0.6 % Neutrophils # (Auto) 4.2 TH/MM3 5.7 TH/MM3 Lymphocytes # (Auto) 3.2 TH/MM3 2.2 TH/MM3 Monocytes # (Auto) 0.8 TH/MM3 0.8 TH/MM3 Eosinophils # (Auto) 0.2 TH/MM3 0.1 TH/MM3 Basophils # (Auto) 0.1 TH/MM3 0.1 TH/MM3 CBC Comment DIFF FINAL DIFF FINAL Differential Comment Prothrombin Time 10.6 SEC Prothromb Time International Ratio 1.0 RATIO Activated Partial Thromboplast Time 26.2 SEC Blood Urea Nitrogen 14 MG/DL 12 MG/DL Creatinine 0.85 MG/DL 0.47 MG/DL Random Glucose 141 MG/DL 112 MG/DL Calcium Level 8.9 MG/DL 7.7 MG/DL Magnesium Level 2.1 MG/DL 1.9 MG/DL Sodium Level 138 MEQ/L 140 MEQ/L Potassium Level 3.7 MEQ/L 3.2 MEQ/L Chloride Level 103 MEQ/L 107 MEQ/L Carbon Dioxide Level 26.3 MEQ/L 23.9 MEQ/L Anion Gap 9 MEQ/L 9 MEQ/L Estimat Glomerular Filtration Rate 67 ML/MIN 133 ML/MIN Total Creatine Kinase 85 U/L 162 U/L 149 U/L 135 U/L Troponin I 0.02 NG/ML 1.25 NG/ML 2.89 NG/ML 2.25 NG/ML Lipase 183 U/L Creatine Kinase MB 5.6 NG/ML 8.0 NG/ML 7.7 NG/ML Total Protein 5.9 GM/DL Albumin 3.3 GM/DL Phosphorus Level 2.2 MG/DL Alkaline Phosphatase 62 U/L Aspartate Amino Transf (AST/SGOT) 21 U/L Alanine Aminotransferase (ALT/SGPT) 29 U/L Total Bilirubin 0.5 MG/DL Triglycerides Level 116 MG/DL Cholesterol Level 221 MG/DL LDL Cholesterol 138 MG/DL HDL Cholesterol 59.5 MG/DL Cholesterol/HDL Ratio 3.71 RATIO Free Thyroxine 1.09 NG/DL Thyroid Stimulating Hormone 3rd Gen 4.590 uIU/ML Imaging Last 24 hours Impressions Chest X-Ray 03/07/17 1150 Signed Impressions: Service Date/Time: Tuesday, March 07, 2017 11:55 - CONCLUSION: No acute disease. Leobardo Nance MD Assessment and Plan Problem List: (1) NSTEMI (non-ST elevated myocardial infarction) ICD Codes: I21.4 - Non-ST elevation (NSTEMI) myocardial infarction Plan: NSTEMI s/p PCI/GAL x2 in LAD Apical hypokinesis EF 50% Echo pending Access site oozing stopped with manual pressure. No hematoma, mildly tender, pulses throughout Recommendations: Cont DAPT with ASA and Effient for at least 12 months Cont BB, ARB, statins and long acting nitrates Echo to assess LV systolic function Encourage out of bed Follow with Cards upon d/c If continue to be stable she can be d/c home today in the afternoon. Chirag Valdivia MD Mar 08, 2017 09:52
--- NOTE | 2017-03-08 10:38 | MA ---
cc: SALIMACHIRAG DATE 03/07/2017 DATE OF 1950 PROCEDURES PERFORMED 1. Left heart catheterization. 2. Selective right and left coronary angiography. 3. Left ventriculogram. 4. FFR to the LAD. 5. Success PCI to proximal and distal LAD. INDICATION Non-ST elevation myocardial infarction. ACCESS Right transradial and right transfemoral. PROCEDURE DESCRIPTION Consent signed. The patient was brought in to the cardiac catheterization lab in a fasting state. The right wrist was prepped and draped in a sterile fashion. Using 1% lidocaine for local anesthesia and a micropuncture kit, a 6 Finnish sheath was inserted into the right radial artery. Antispasmodic cocktail was given, then selective right and left coronary angiographies were performed with a JR4 and a JL4 diagnostic catheters. Angiography was taken in multiple views. The JR4 diagnostic catheter was introduced into the ventricle over a wire. It was followed by pressure recordings, left ventriculogram and pullback. All catheters were exchanged over a wire. We identified a lesion about 70% in the proximal LAD and 90% in the distal LAD. Given the uncertainty of the lesion we proceeded to do FFR. For this the left main was engaged with an EBU 3.5 guide. Heparin was given for IV anticoagulation. However, the patient started developing moderate vasospasm to the right arm for which the procedure had to be changed to the right groin. Using 1% lidocaine for local anesthesia and a micropuncture kit a 6 Finnish sheath was inserted in to the right common femoral artery. The right common femoral artery angiography was performed to confirm position of the sheath. Then the left main was engaged with an EBU 3.5 guide. Heparin was given for IV anticoagulation. The pressure wire was normalized outside the catheter, then introduced into the vessel distally and then the adenosine infusion started. The FFR value was 0.79 which is positive for ischemia for which we proceeded to fix. For this we used the pressure wire for PCI. We direct stented the distal LAD with a 225 x 8 drug-eluting stent, followed by insertion of the ____ drug-eluting stent in the proximal LAD which was inflated to high atmospheres. Final angiographic views revealed good stent apposition with JAN III flow. No signs of dissection or obstruction. The patient tolerated the procedure well without complications. ESTIMATED BLOOD LOSS Less than 10 cc. TOTAL CONTRAST 165cc The right groin access site was closed with Perclose and the right radial access site with a TR band. The patient was loaded with Effient post procedure. RESULTS Left ventricle. The left ventricular pressure was 151/12 with an left ventricular end diastolic pressure of 15. The aortic pressure was 134/76 with a mean of 101. There was no gradient upon pullback from the left ventricle to the aorta. Left ventriculogram revealed hypokinesis of the apical wall and an estimated ejection fraction of 55-60%. ANGIOGRAPHY 1. The right coronary artery. The right coronary artery is a dominant artery. It is giving off the PDA. It has minimal luminal irregularities throughout. It does have a 10% in the proximal segment. The PDA is patent, non-obstructing coronary artery disease. The RV branch is small and patent. 2. The left main is patent with JAN III flow and it is giving the LAD and the left circumflex artery. 3. The LAD is a transapical vessel. It is giving off three diagonal branches all of which are patent. The LAD has a 75% lesion proximally and an 80% distal before its wraps around the apex. 4. The left circumflex artery. This is small. It is composed mainly of a small AV groove branch and main OM artery both of which are patent. CONCLUSIONS 1. Successful PCI/GAL to proximal LAD. 2. Successful PCI/GAL to distal LAD. 3. Preserved left ventricular systolic function, however, there is hypokinesis of the apical wall of the left ventricle. RECOMMENDATIONS The patient will be admitted to the [facility] for post catheterization care. She will be started on IV hydration 125 cc of normal saline for the next four hours. Bed rest for four hours. Continue dual antiplatelet agents with aspirin and Effient. Aggressive medical management for secondary prevention of coronary artery disease with beta danielle, statins, nitrates and therapeutic lifestyle changes. The patient should follow up with her etcher enameling in [place] upon discharge. Chirag Valdivia MD, MPH, [facility]/KK /6:53 PM /10:14 AM STEPHANIA
[2017-03-08] MEDS: METOPROLOL TARTRATE 25 MG TAB PO SCH (11:19)
[2017-03-08] MEDS: DOCUSATE SODIUM 50 MG/SENNA 8.6 MG TAB PO SCH (11:19)
--- NOTE | 2017-03-08 12:43 | ECHRPT ---
Indication: CHEST PAIN CONCLUSIONS Normal left ventricular size. Mild concentric left ventricular hypertrophy. The left ventricular systolic function is hyperdynamic with an estimated ejection fraction in the ra nge of 65- 70%. Trace mitral valve regurgitation. The pulmonary valve is not well visualized. BP: 147 / 87 HR: 81 Rhythm: Sinus MEASUREMENTS (Male / Female) Normal Values Technical Quality:Very technically difficult study 2D ECHO LV Diastolic Diameter PLAX 3.6 cm 4.2 - 5.9 / 3.9 - 5.3 cm LV Systolic Diameter PLAX 2.4 cm IVS Diastolic Thickness 1.1 cm 0.6 - 1.0 / 0.6 - 0.9 cm LVPW Diastolic Thickness 1.1 cm 0.6 - 1.0 / 0.6 - 0.9 cm LV Relative Wall Thickness 0.6 RV Internal Dim ED PLAX 1.8 cm LVOT Diameter 1.9 cm Aortic Root Diameter 3.0 cm LA Systolic Diameter LX 2.4 cm 3.0 - 4.0 / 2.7 - 3.8 cm M-MODE AV Cusp Separation MM 1.8 cm DOPPLER AV Peak Velocity 110.0 cm/s AV Peak Gradient 4.8 mmHg AV Mean Gradient 3.0 mmHg AV Velocity Time Integral 25.8 cm LVOT Peak Velocity 83.5 cm/s LVOT Peak Gradient 2.8 mmHg LVOT Velocity Time Integral 20.0 cm LVOT Cardiac Index 2359.7 cm/minm AV Area Cont Eq vti 2.2 cm AV Area Cont Eq pk 2.2 cm Mitral E Point Velocity 73.5 cm/s Mitral A Point Velocity 68.6 cm/s Mitral E to A Ratio 1.1 LV E' Lateral Velocity 10.3 cm/s Mitral E to LV E' Lateral Ratio 7.1 LV E' Septal Velocity 6.4 cm/s Mitral E to LV E' Septal Ratio 11.4 PV Peak Velocity 68.4 cm/s PV Peak Gradient 1.9 mmHg FINDINGS LEFT VENTRICLE Normal left ventricular size. Mild concentric left ventricular hypertrophy. The left ventricular systolic function is hyperdynamic with an estimated ejection fraction in the ra nge of 65- 70%. RIGHT VENTRICLE Normal right ventricular size and systolic function. LEFT ATRIUM The left atrial size is normal. RIGHT ATRIUM The right atrial size is normal. ATRIAL SEPTUM Normal atrial septal thickness without atrial level shunting by limited color doppler interrogation. AORTA The aortic root and proximal ascending aorta are normal in size on limited imaging. MITRAL VALVE Trace mitral valve regurgitation. AORTIC VALVE Trileaflet aortic valve. No aortic valve stenosis or regurgitation. TRICUSPID VALVE Structurally normal tricuspid valve. No tricuspid valve stenosis or regurgitation. PULMONARY VALVE The pulmonary valve is not well visualized. VESSELS The inferior vena cava is normal in size. PERICARDIUM No pericardial effusion. Willy Haynes MD, FACC (Electronically Signed) Final Date:08 March 2017 12:43
[2017-03-08] MEDS ORDERED: HYDR25TA5 PO (13:16)
[2017-03-08] MEDS ORDERED: METO25TA3 PO (13:16)
[2017-03-08] MEDS ORDERED: PRAS10TA PO (13:16)
[2017-03-08] MEDS ORDERED: LIPI10TA PO (13:16)
--- NOTE | 2017-03-08 13:24 | HHI.PR ---
Subjective Remarks Patient seen this morning around 10 AM . Patient says she is feeling all right. Denies any chest pain or shortness of breath. Feels like she can go home this afternoon Objective Vital Signs Date Time Temp Pulse Resp B/P (MAP) Pulse Ox O2 Delivery O2 Flow Rate FiO2 03/08/17 08:00 98.4 76 20 143/54 (83) 97 03/08/17 07:00 80 03/08/17 06:40 81 03/08/17 05:00 76 03/08/17 04:31 98.0 77 147/78 (101) 98 03/08/17 04:00 56 03/08/17 03:00 76 03/08/17 02:00 76 03/08/17 01:00 76 03/08/17 00:05 97 21 03/08/17 00:00 76 03/07/17 23:00 73 03/07/17 23:00 97.8 77 124/73 (90) 97 03/07/17 22:00 78 03/07/17 21:00 82 03/07/17 20:00 80 03/07/17 19:00 75 03/07/17 19:00 98.4 87 143/71 (95) 98 03/07/17 17:17 03/07/17 16:00 104 15 176/77 (110) 100 Room Air 03/07/17 14:00 101 17 156/76 (102) 100 Room Air I/O 03/07/17 03/07/17 03/07/17 03/08/17 03/08/17 03/08/17 07:00 15:00 23:00 07:00 15:00 23:00 Intake Total 480 ml Output Total 400 ml Balance 80 ml Intake Oral 480 ml Output Urine Total 400 ml Result Diagram: 03/08/1743103/08/17 043 Objective Remarks GENERAL: Patient sitting up in bed. Appears comfortable. Alert and oriented 4. SKIN: Warm and dry. HEAD: Normocephalic. EYES: No scleral icterus. No injection or drainage. NECK: Supple, trachea midline. No JVD. CARDIOVASCULAR: Regular rate and rhythm without murmurs, gallops, or rubs. RESPIRATORY: Breath sounds equal bilaterally. No accessory muscle use. GASTROINTESTINAL: Abdomen soft, non-tender, nondistended. MUSCULOSKELETAL: No cyanosis, or edema. BACK: Nontender without obvious deformity. No CVA tenderness. A/P Assessment and Plan /Non-ST elevation ND with positive troponin will go for cardiac catheterization later today with Dr. Leonard Continue on blood pressure medications will more likely need to be on a beta danielle of an intervention is done and continue on an Prashant INHIBITOR or ARB = Test for cardiac catheterization with PCI intervention. Echocardiogram reviewed with normal ejection fraction. Continue on Aspirin and statin, Effient, beta danielle, //Hypertension continue -Continue ARB, with decreased dose of patient's home hydrochlorothiazide. //Anxiety make medications available and medications for insomnia available //Irritable bowel continue on Bentyl when necessary //Benign positional vertigo continue on Antivert 25 mg by mouth 3 times a day scheduled //Hyperlipidemia continue on statin //Hypokalemia. Potassium 3.2. Replaced. Nightly secondary to nothing by mouth status Follow-up primary care. //TSH mildly elevated 4.59. Follow with primary care and recheck Discharge Planning Discharge home in good condition. Continue heart healthy diet. Activity ad trang. Please see discharge medication reconciliation for medication list. 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 Jaden Wylie MD Mar 08, 2017 13:24
[2017-03-08] MEDS ORDERED: POTASSIUM CHLORIDE 10 MEQ CONTROLLED RELEASE TAB PO ONE (13:30)
--- NOTE | 2017-03-08 18:44 | EKG ---
Date Performed: 03/07/2017 Time Performed: 11:40:36 PTAGE: 66 years EKG: Sinus rhythm MINIMAL ST DEPRESSION BORDERLINE ECG NO PREVIOUS TRACING DOCTOR: Le Jay Interpretating Date/Time 03/08/2017 18:43:25
--- NOTE | 2017-03-08 18:44 | EKG ---
Date Performed: 03/07/2017 Time Performed: 22:59:34 PTAGE: 66 years EKG: Sinus rhythm Nonspecific ST-T wave changes Compared to prior tracing no significant change Normal ECG PREVIOUS TRACING : 03/07/17 @ 1444 DOCTOR: Le Jay Interpretating Date/Time 03/08/2017 18:44:14
--- NOTE | 2017-03-08 18:44 | EKG ---
Date Performed: 03/07/2017 Time Performed: 14:44:59 PTAGE: 66 years EKG: Sinus rhythm Compared to prior tracing no significant change ABNORMAL ECG PREVIOUS TRACING : 03/07/2017 11.40 DOCTOR: Le Jay Interpretating Date/Time 03/08/2017 18:43:41
--- NOTE | 2017-03-09 15:02 | CATHPROC ---
[facility] Development [facility] HIS Report Study Information Study Number Admission Scheduled Start Study Start [id number] Mar 07 2017 4:27PM 03/07/2017 Mar 07 2017 5:08PM [place] [facility] Cardiac Catheterization Admit Source Facility Department Emergency department [facility] - [facility] Physician and Clinical Staff Initial Chirag Schmitt Jet Man Lana Sanon BSN Jet Man Cassidy Woodall Recorder Esmer Davenport,RT(R) (BS) Scrub Naresh Aguillon,RT(R) Procedures Performed Procedure Location (Site) Vessel Name Coronary Angiograms LCA Left Coronary Coronary Angiograms RCA Right Coronary Drug Eluting Inflatio LAD Mid Left Coronary Drug Eluting Inflatio LAD Prox Left Coronary L Heart Cath LV Gram-hand inj. LV LV Ventricle PTCA ADD ON'S Wire insertion Fem Art (right) Femoral Art Wire insertion Radial (right) Radial Art. Equipment Time Review Assistant Description Size Mfg Part Number Used/Scraped COPILOT VALVE, BLEEDBACK [id number] 18:02 [employer] Used CONTROL *[id number] PERCLOSE, PRO GLIDE CLOSER 18:45 [employer] FR 6 [address] *[id number] Used DEVICE TRANSDUCER, TRUWAVE [id number] 17:10 ESCAMILLA TAYLOR * Used W/STOCKCOCK *[id number] 15:01 [employer] STENT, SYNERGY 2.25 X 8MM Used *[id number] 18:40 [employer] STENT, SYNERGY 3.5 X12MM Used *[id number] INTRODUCER SET, 18:16 [employer] FR 5 [id number] *[id number] Used MICROPUNCTURE, STIFFENED [id number] *[id number] [id number] 17:10 [employer] PACK, CCL CUSTOM * Used *[id number] 17:10 [employer] SUPPORT, ARTERIAL ADULT 29061 *1937204 Used [id number] 17:46 MEDTRONIC JL 4.0 DXTERITY CATHETER FR 5 Used *[id number] [id number] 18:33 [employer]TR[employer]IC STENT, 2.25 12MM JACOB 2.25 12MM Used *[id number] [id number] 18:02 MEDTR[employer]IC/AVE EBU 3.5 Z2 GUIDE CATHETER FR 6 Used *[id number] 18:16 [employer]IC/AVE EBU 3.5 Z2 GUIDE CATHETER FR 6 Used *[id number] [id number] 18:02 [employer]ia 30 BAYRON INDEFLATOR Used *[id number] BAND, RADIAL COMPRESSION TR [id number] 18:47 [employer] MEDICAL 24CM Used SHORT 24 *5549189 [id number] 17:10 [employer] MEDICAL WIRE, 3MMJ .035 180CM 180CM Used *7896887 [id number] 17:10 NAMIC MANIFOLD, 4 PORT * Used *[id number] 17:10 NYCOMED OMNIPAQUE, 350 MG, 150ML 150ML [id number] Used 18:42 NYCOMED OMNIPAQUE, 350 MG, 50ML 50ML [id number] Used 18:42 NYCOMED OMNIPAQUE, 350 MG, 50ML 50ML [id number] Used [id number] 17:10 [facility] BLANKET,WARM AIR CCL * Used *4023861 [id number] 18:14 TERUMO MEDICAL SHEATH, FR6 TERUMO (10CM) FR 6 Used *3348547 SHEATH, FR6 TRANSRADIAL [id number] 17:10 [employer]UMO MEDICAL FR 6 Used SLENDER 10CM *[id number] 18:18 [employer] PRIME WIRE, VERRATA 185CM 185CM 61386 *1655800 Used 18:04 [employer] PRIME WIRE, VERRATA 185CM 185CM 51984 *[id number] Used Equipment Model, Serial, Lot Number and Expiration Data Description Model Number Serial Number Lot Number Expiration Date INTRODUCER SET, [id number] 12-19-2019 MICROPUNCTURE, STIFFENED JL 4.0 DXTERITY CATHETER [id number] 10-01-2019 STENT, Defend Your Head [id number] 11-11-2017 STENT, Defend Your Head [id number] 12-15-2017 History: Current Medications Medication Dosage/Unit Route Frequency Last Date/Time Taken ASA HEPARIN NTG Patch History: Allergies Allergy Reaction codeine terazosin mycins History: Risk Factors Family History of Hypertension Dyslipidemia Previous UT Previous Heart Failure Premature CAD Yes Yes No No No Prior Valve Prior PCI Prior CABG Surgery No No No Cerebrovascular Peripheral Artery Chronic Lung On Dialysis Diabetes Diabetes Therapy Disease Disease Disease No No No No Yes Oral History: Symptoms/Diagnosis Selection Items Chest pain History: Stress Tests Stress or Imaging Studies Performed No History: Other Current Smoker No Labs Hgb (g/dl) Hct (%) WBC (l/cumm) Platelets (thousands) 11.60-17.00 35.00-51.00 4.00-11.00 150.00-450.00 14.2 41.5 8.5 373 Glucose (mg/dl) BUN (mg/dl) Creatinine (mg/dl) BUN:Creatinine (1:x) 74.00-106.00 7.00-18.00 0.50-1.30 10.00-20.00 141 14 0.8 17.5 Na (meq/l) K (meq/l) 136.00-145.00 3.50-5.10 138 3.7 INR (PTT:PT) 0.90-1.10 1 Troponin I (ng/ml) CPK-MB (ng/ML) 0.02-0.05 0.50-3.60 1.25 Not Drawn Medication Medication Total Dose (Bolus/Oral) Medication Total Dosage/Unit 1% XYLOCAINE 21 mL EFFIENT 60 mg FENTANYL 300 mcg HEPARIN 5400 units OXYGEN 2 l/min RADIAL COCKTAIL 1 units VERSED 9 mg Medications (Bolus/Oral) Medication Time Given Dosage/Unit Administered By Reason FENTANYL 03/07/2017 5:45:16 PM 50 mcg Luisaer, Cassidy 50 mcg FENTANYL given in lab by Cassidy Woodall in Left Antecubital via Peripheral IV. OXYGEN 03/07/2017 5:45:56 PM 2 l/min Lana Sanon 2 l/min OXYGEN given in lab by Lana Sanon BSN via Nasal. VERSED 03/07/2017 5:46:08 PM 1 mg Luisaer, Cassidy 1 mg VERSED given in lab by Cassidy Woodall in Left Antecubital via Peripheral IV. 1% XYLOCAINE 03/07/2017 5:47:14 PM 1 mL Leonard-Berkley Chirag 1 mL 1% XYLOCAINE given in lab by KeyanaBerkley, Chirag in Right Radial via Subcutaneous. VERSED 03/07/2017 5:47:39 PM 1 mg Stamper, Cassidy 1 mg VERSED given in lab by Cassidy Woodall in Left Antecubital via Peripheral IV. FENTANYL 03/07/2017 5:49:23 PM 25 mcg Lana Sanon 25 mcg FENTANYL given in lab by Matuszczak, Lana , BSN in Left Antecubital via Peripheral IV. Ntg 200mcg Verapamil 2.5mg Heparin RADIAL COCKTAIL 03/07/2017 5:49:35 PM 1 units LeonardStella Chirag 3000U 1 units RADIAL COCKTAIL given in lab by LeonardJessyBerkley, Chirag in Right Radial via Radial. Reason: Ntg 200 mcg Verapamil 2.5mg Heparin 2500U. VERSED 03/07/2017 5:50:26 PM 1 mg Lana Sanon 1 mg VERSED given in lab by Lana Sanon , KATHLENEN in Left Antecubital via Peripheral IV. VERSED 03/07/2017 5:52:18 PM 1 mg Max Woodallrra 1 mg VERSED given in lab by Cassidy Woodall in Left Antecubital via Peripheral IV. FENTANYL 03/07/2017 5:53:31 PM 25 mcg Lana Sanon 25 mcg FENTANYL given in lab by Lana Sanon BSN in Left Antecubital via Peripheral IV. VERSED 03/07/2017 5:58:33 PM 1 mg LuisaerMaxCassidy 1 mg VERSED given in lab by Cassidy Woodall in Left Antecubital via Peripheral IV. FENTANYL 03/07/2017 5:59:55 PM 50 mcg Lana Sanon 50 mcg FENTANYL given in lab by Lana Sanon BSN in Left Antecubital via Peripheral IV. HEPARIN 03/07/2017 6:00:39 PM 5400 units Max Woodallrra 5400 units HEPARIN given in lab by Cassidy Woodall in Left Antecubital via Peripheral IV. FENTANYL 03/07/2017 6:01:01 PM 50 mcg Luisaer, Cassidy 50 mcg FENTANYL given in lab by Mikal Woodalla in Left Antecubital via Peripheral IV. VERSED 03/07/2017 6:14:28 PM 2 mg Lana Sanon 2 mg VERSED given in lab by Lana Sanon BSN in Left Antecubital via Peripheral IV. FENTANYL 03/07/2017 6:15:35 PM 50 mcg Lana Sanon 50 mcg FENTANYL given in lab by Matuszczak, Lana , BSN in Left Antecubital via Peripheral IV. 1% XYLOCAINE 03/07/2017 6:16:22 PM 20 mL Leonard-Berkley, Chirag 20 mL 1% XYLOCAINE given in lab by Shea Chirag in Right Groin via Subcutaneous. VERSED 03/07/2017 6:20:43 PM 1 mg Stamper, Cassidy 1 mg VERSED given in lab by Cassidy Woodall in Left Antecubital via Peripheral IV. FENTANYL 03/07/2017 6:21:53 PM 25 mcg Stamper, Cassidy 25 mcg FENTANYL given in lab by Max Woodallrra in Left Antecubital via Peripheral IV. VERSED 03/07/2017 6:30:45 PM 1 mg Stamper, Cassidy 1 mg VERSED given in lab by Cassidy Woodall in Left Antecubital via Peripheral IV. FENTANYL 03/07/2017 6:31:00 PM 25 mcg Stamper, Cassidy 25 mcg FENTANYL given in lab by Cassidy Woodall in Left Antecubital via Peripheral IV. EFFIENT 03/07/2017 6:51:12 PM 60 mg Stamper, Cassidy 60 mg EFFIENT given in lab by Cassidy Woodall via Oral. Medication (Drip) Medication Time Given Dosage/Unit Concentration/Unit Diluent (ml) Solution ADENOSINE DRIP 03/07/2017 6:08:30 PM 135.484 mcg/kg/min 90 mg 90 NaCl .9 135.484 mcg/kg/min ADENOSINE DRIP given in lab by Cassidy Woodall in Left Antecubital via Peripheral IV. Pump/Drip Flow = 630 ml/hr using NaCl .9 with a concentration of 90 mg in 90 ml. ADENOSINE DRIP 03/07/2017 6:26:35 PM 135.484 mcg/kg/min 90 mg 90 NaCl .9 135.484 mcg/kg/min ADENOSINE DRIP given in lab by Cassidy Woodall in Left Antecubital via Peripheral IV. Pump/Drip Flow = 630 ml/hr using NaCl .9 with a concentration of 90 mg in 90 ml. ADENOSINE DRIP 03/07/2017 6:28:23 PM 0 units/hr 0 STOPPED 0 units/hr ADENOSINE DRIP STOPPED given in lab by Cassidy Woodall. Pump/Drip Flow = 0 ml/hr using [So lution Name]. AMIODARONE DRIP 03/07/2017 6:11:20 PM 0 units/hr 0 D5W STOPPED 0 units/hr AMIODARONE DRIP STOPPED given in lab by Cassidy Woodall. Pump/Drip Flow = 0 ml/hr using D5 W. HEPARIN DRIP STOPPED 03/07/2017 5:15:29 PM 0 units/hr 0 0 units/hr HEPARIN DRIP STOPPED given by Lana Sanon BSN. Pump/Drip Flow = 0 ml/hr using [So lution Name]. IV Solutions 03/07/2017 5:30:19 PM 0 mL (IV) 500 NaCl .9 Patient arrived on IV Solutions in Left Antecubital via Peripheral IV. Pump/Drip Flow = 30 ml/hr usin g NaCl .9. Initial Case Assessment Cardiovascular HR Rhythm NIBP Chest Pain 121 tachy 174/87 0 Edema Present Skin color Skin None Normal Warm Dry Circulatory - Right Pulses Dorsalis Pedis Femoral Radial 2 2 2 Scale (0,1,2,3,4,d) Scale (0,1,2,3,4,d) Circulatory - Lower Extremities Color Lower Right Color Lower Left Normal Normal Neurological State Oriented to time-place- Alert Moves all extremities person Respiration - General Respiration Rate SpO2 (%) (B/min) 27 99 Chronological Log Time Study Chronological Log 0 units/hr HEPARIN DRIP STOPPED given by Lana Sanon BSN. Pump/Drip Flow = 0 ml/hr usi ng [Solution 17:15:29 Name]. 17:20:34 Patient arrived via Bed. 17:20:35 Patient Name, D.O.B, / Armband Verified By R.N. 17:20:38 Consent signed by the physician and the patient and verified by the [facility] staff. 17:20:38 Pre-op and post- op instructions given; patient acknowledges understanding of instructions. 17:20:39 Verbal Stimulation=2 Physical Stimulation=2 Airway=2 Respiration=2 TOTAL=8. (0=absent, 1=li mited, 2=present) 17:20:40 Presedation assessment performed by [facility] Skinner RN. 17:20:45 Allens test performed on the right radial and ulnar artery. 17:30:14 Skin Breakdown none per pt 17:30:15 Patient Warmer Placed on the Table. 17:30:16 Farhat Prominences Protected 17:30:17 A # 20 IV was noted in the Antecubital (left). Grade = 0 17:30:18 A # 20 IV was noted in the Hand (left). Grade = 0 17:30:19 Patient arrived on IV Solutions in Left Antecubital via Peripheral IV. Pump/Drip Flow = 30 ml/hr using NaCl .9. 17:30:20 History and physical on the chart or being dictated. Assessment: Initial Case, HR=177 BPM, Rhythm=tachy, PCKP=648/87 mmhg, Chest Pain=0, Edema=None, Color=Normal, Skin = Warm, Dry Right Pulses: Gwyn Ped=2, Femoral=2, Radial=2 17:30:55 Lower Right Extremities: Color=Normal Lower Left Extremities: Color=Normal Neurological: State=Alert, Ox3, MILIAN Respiration: Resp=27 B/min, SpO2=99 % 17:35:06 Reference ECG taken Vitals capture started with the following parameters, Patient=Adult, Interval=5 min, Initial Pr tktpvo=366 mmHg, 17:36:22 Deflation Rate=5 mmHg, Cuff placed on Left Arm 17:38:08 AT=516 bpm, SVET=838/87 mmhg, SpO2=99.0 %, Resp=17 B/min, Pain=0, Angella=10, Jay=2 17:38:52 Right Radial and groin(s) prepped with 2% chlorhexidine, and draped after a 3 min. waiting time. 17:42:04 DW=821 bpm, AZEI=836/101 mmhg, SpO2=98.0 %, Resp=22 B/min, Pain=0, Angella=10, Jay=2 17:43:22 Pressure channel 1 zeroed. Time Out. Correct patient, correct procedure, correct physician, power injector not loaded with contrast with surgical 17:44:04 team present. Time Out Concurred by MD and individual staff in procedure. 17:44:33 Case Start 17:45:16 50 mcg FENTANYL given in lab by Cassidy Woodall in Left Antecubital via Peripheral IV. 17:45:56 2 l/min OXYGEN given in lab by Lana Sanon BSN via Nasal. 17:46:08 1 mg VERSED given in lab by Cassidy Woodall in Left Antecubital via Peripheral IV. 17:47:05 ZK=663 bpm, JGBX=599/88 mmhg, SpO2=99.0 %, Resp=26 B/min, Pain=0, Angella=10, Jay=2 17:47:14 1 mL 1% XYLOCAINE given in lab by Chirag Valdivia in Right Radial via Subcutaneous. 17:47:39 1 mg VERSED given in lab by Cassidy Woodall in Left Antecubital via Peripheral IV. 17:49:13 Access site was right Radial Artery. 17:49:23 25 mcg FENTANYL given in lab by Lana Sanon BSN in Left Antecubital via Peripheral IV. A SHEATH, FR6 TRANSRADIAL SLENDER 10CM FR 6 was advanced into the Radial (right) using the Perc utaneous 17:49:26 technique. 1 units RADIAL COCKTAIL given in lab by Chirag Valdivia in Right Radial via Radial. Reason: N tg 200mcg Verapamil 17:49:35 2.5mg Heparin 2500U. A JR 4.0 INFINITI CATHETER FR 5 was advanced over a wire. OMNIPAQUE, 350 MG, 150ML 150ML was us ed for 17:49:50 injections. 17:50:26 1 mg VERSED given in lab by Lana Sanon BSN in Left Antecubital via Peripheral IV. Recorded Pressure: LV, MQ=081, Condition=Condition 1 17:50:49 (Left Ventricle) LV 156/7/8 17:51:04 The LV was manually injected with 8 cc's and visualized. OMNIPAQUE, 350 MG, 150ML 150ML use d. Recorded Pressure: LV, Ao, LY=866, Condition=Condition 1 17:51:24 (Left Ventricle) LV 151/12/15, (Aorta) Ao 150/89/116 17:52:04 FR=179 bpm, TYDI=915/74 mmhg, SpO2=96.0 %, Resp=27 B/min, Pain=0, Angella=10, Jay=2 17:52:10 The RCA was injected and visualized at various angles. OMNIPAQUE, 350 MG, 150ML 150ML used . 17:52:18 1 mg VERSED given in lab by Cassidy Woodall in Left Antecubital via Peripheral IV. 17:52:21 Catheter was removed A JL 4.0 DXTERITY CATHETER FR 5 was advanced over a wire. OMNIPAQUE, 350 MG, 150ML 150ML was us ed for 17:52:23 injections. 17:53:31 25 mcg FENTANYL given in lab by Lana Sanon BSN in Left Antecubital via Peripheral IV. Recorded Pressure: Ao, RW=053, Condition=Condition 1 17:53:51 (Aorta) Ao 134/76/101 17:54:08 The LCA was injected and visualized at various angles. OMNIPAQUE, 350 MG, 150ML 150ML used . 17:57:03 TL=381 bpm, VTWK=655/77 mmhg, SpO2=96.0 %, Resp=28 B/min, Pain=0, Angella=10, Jay=2 17:58:04 Catheter was removed 17:58:33 1 mg VERSED given in lab by Cassidy Woodall in Left Antecubital via Peripheral IV. 17:59:55 50 mcg FENTANYL given in lab by Lana Sanon BSN in Left Antecubital via Peripheral IV. 18:00:39 5400 units HEPARIN given in lab by Cassidy Woodall in Left Antecubital via Peripheral IV. 18:01:01 50 mcg FENTANYL given in lab by Cassidy Woodall in Left Antecubital via Peripheral IV. A EBU 3.5 Z2 GUIDE CATHETER FR 6 was advanced over a wire. OMNIPAQUE, 350 MG, 150ML 150ML was u sed for 18:01:23 injections. 18:01:49 contrast and 30 BAYRON INDEFLATOR added. 18:02:04 HR=97 bpm, HUTA=390/84 mmhg, SpO2=95.0 %, Resp=21 B/min, Pain=0, Angella=10, Jay=2 18:02:29 A WIRE, 3MMJ .035 180CM 180CM was inserted via Radial (right). 18:04:40 Wire removed 18:05:48 A PRIME WIRE, VERRATA 185CM 185CM was inserted via Radial (right). 18:07:07 HR=96 bpm, XSEP=007/76 mmhg, SpO2=95.0 %, Resp=20 B/min, Pain=0, Angella=10, Jay=2 135.484 mcg/kg/min ADENOSINE DRIP given in lab by Cassidy Woodall in Left Antecubital via Perip heral IV. Pump/Drip 18:08:30 Flow = 630 ml/hr using NaCl .9 with a concentration of 90 mg in 90 ml. 18:09:33 Flow Wire was was placed in the LAD Mid. The FFR measures 0.8 percent. 18:11:20 0 units/hr AMIODARONE DRIP STOPPED given in lab by Cassidy Woodall. Pump/Drip Flow = 0 ml/h r using D5W. 18:12:06 YN=481 bpm, HOND=764/75 mmhg, SpO2=97.0 %, Resp=25 B/min, Pain=0, Angella=10, Jay=2 18:13:27 The PRIME WIRE, VERRATA 185CM 185CM was removed. 18:14:28 2 mg VERSED given in lab by Lana Sanon BSN in Left Antecubital via Peripheral IV. 18:14:58 Catheter was removed 18:15:35 50 mcg FENTANYL given in lab by Lana Sanon BSN in Left Antecubital via Peripheral IV. 18:16:22 20 mL 1% XYLOCAINE given in lab by Chirag Valdivia in Right Groin via Subcutaneous. 18:17:03 UK=846 bpm, HVAU=991/78 mmhg, SpO2=93.0 %, Resp=16 B/min, Pain=0, Angella=10, Jay=2 18:19:02 Access site was Right Femoral Artery. A INTRODUCER SET, MICROPUNCTURE, STIFFENED FR 5 was advanced into the Fem Art (right) using the 18:19:08 Percutaneous technique. A SHEATH, FR6 TERUMO (10CM) FR 6 was exchanged in the Fem Art (right). This was necessary in or mo to 18:19:13 accomodate a larger catheter. A EBU 3.5 Z2 GUIDE CATHETER FR 6 was advanced over a wire. OMNIPAQUE, 350 MG, 150ML 150ML was u sed for 18:20:17 injections. 18:20:43 1 mg VERSED given in lab by Cassidy Woodall in Left Antecubital via Peripheral IV. 18:21:53 25 mcg FENTANYL given in lab by Cassidy Woodall in Left Antecubital via Peripheral IV. 18:21:59 Activated Clotting Time Drawn 18:22:04 HR=99 bpm, JWAU=529/79 mmhg, SpO2=94.0 %, Resp=21 B/min, Pain=0, Angella=10, Jay=2 18:23:14 A PRIME WIRE, VERRATA 185CM 185CM was inserted via Fem Art (right). 135.484 mcg/kg/min ADENOSINE DRIP given in lab by Cassidy Woodall in Left Antecubital via Perip heral IV. Pump/Drip 18:26:35 Flow = 630 ml/hr using NaCl .9 with a concentration of 90 mg in 90 ml. 18:27:03 JI=752 bpm, MVZG=171/69 mmhg, SpO2=93.0 %, Resp=19 B/min, Pain=0, Angella=10, Jay=2 18:27:08 Flow Wire was was placed in the LAD Mid. The FFR measures 0.79 percent. 18:27:24 ACT (Normal Range 90-180) = 279 0 units/hr ADENOSINE DRIP STOPPED given in lab by Cassidy Woodall. Pump/Drip Flow = 0 ml/hr usi ng [Solution 18:28:23 Name]. 18:30:45 1 mg VERSED given in lab by Cassidy Woodall in Left Antecubital via Peripheral IV. 18:31:00 25 mcg FENTANYL given in lab by Cassidy Woodall in Left Antecubital via Peripheral IV. 18:32:04 JI=691 bpm, CUMX=467/67 mmhg, SpO2=93.0 %, Resp=28 B/min, Pain=0, Angella=10, Jay=2 A STENT, 2.25 12MM JACOB 2.25 12MM was advanced through a EBU 3.5 Z2 GUIDE CATHETER FR 6 over a PRIME 18:32:52 WIRE, VERRATA 185CM 185CM. 18:34:16 Stent not deployed. Stent removed and intact. A STENT, SYNERGY 2.25 X 8MM was advanced through a EBU 3.5 Z2 GUIDE CATHETER FR 6 over a PRIME WIRE, 18:36:27 VERRATA 185CM 185CM. 18:37:01 HR=99 bpm, SHRY=739/77 mmhg, SpO2=96.0 %, Resp=18 B/min, Pain=0, Angella=10, Jay=2 A STENT, SYNERGY 2.25 X 8MM was deployed using a 30 BAYRON INDEFLATOR at 12 atmospheres for 15 sec onds in the 18:38:08 LAD Mid. 18:38:18 Delivery device removed A STENT, SYNERGY 3.5 X12MM was advanced through a EBU 3.5 Z2 GUIDE CATHETER FR 6 over a PRIME W YUNG, 18:40:21 VERRATA 185CM 185CM. A STENT, SYNERGY 3.5 X12MM was deployed using a 30 BAYRON INDEFLATOR at 14 atmospheres for 15 seco nds in the 18:41:30 LAD Prox. 18:42:04 SS=423 bpm, HPVW=383/68 mmhg, SpO2=96.0 %, Resp=22 B/min, Pain=0, Angella=10, Jay=2 18:42:13 Delivery device removed 18:43:04 The LCA was injected and visualized at various angles. OMNIPAQUE, 350 MG, 50ML 50ML used. 18:43:33 Wire removed 18:43:36 Catheter was removed 18:44:42 An injection in the Fem Art (right) was made through the SHEATH, FR6 TERUMO (10CM) FR 6. 18:45:09 PERCLOSE, PRO GLIDE CLOSER DEVICE FR 6 placement in the Fem Art (right) 18:47:00 CIC called. Spoke to Nelly. 18:47:36 HR=89 bpm, CQJP=372/80 mmhg, SpO2=99.0 %, Resp=18 B/min, Pain=0, Angella=10, Jay=2 18:48:18 Case End 18:48:29 Catheter(s) removed without difficulty 18:48:44 Bedside Report will be given. 18:48:45 Implantable Device card placed in patient's chart. 18:48:52 A Left Heart Cath was performed. 18:51:12 60 mg EFFIENT given in lab by Cassidy Woodall via Oral. 18:52:08 HR=91 bpm, NBUZ=390/76 mmhg, SpO2=98.0 %, Resp=19 B/min, Pain=0, Angella=10, Jay=2 18:53:43 Sterile dressing applied to site Radial Compression Device Used. 12 mLs of air placed in BAND, RADIAL COMPRESSION TR SHORT 24 24 CM. Affected 18:55:55 hand 99 % O2 saturation. 18:57:07 HR=81 bpm, CNHW=570/78 mmhg, SpO2=98.0 %, Resp=14 B/min, Pain=0, Angella=10, Jay=2 19:01:41 Vitals capture stopped. 19:05:44 [facility] Study - Contrast Media Used In Study Contrast Total Opened (mL) Total Used (mL) Total Wasted (mL) Omnipaque 165 165 0 End Study - Maximum Contrast Load Max Contrast Load (mL) 484.4 End Study - Radiation Exposure Fluoro Time (minutes) 14.8 End Study - Sheaths Sheaths Pulled By Sheath Hold Time (min) Chirag Valdivia End Study - Patient Disposition Complications Transferred To Interventional Outcome No Telemetry Bed successful
== END 2017-03-08 15:25 | disposition home or self-care (01) | DRG 247 ==
LOC: NEPC 11:28 → NEDA 16:27 → HCIS 19:08
PROVIDERS: ADMIT Internal Medicine; ATTEND Internal Medicine
PROC: 027035Z Dilation of Coronary Artery, One Artery with Two Drug-eluting Intraluminal Devices, Percutaneous Approach (ICD-10-PCS; principal; 2017-03-07)
PROC: 4A023N7 Measurement of Cardiac Sampling and Pressure, Left Heart, Percutaneous Approach (ICD-10-PCS; 2017-03-07)
PROC: B2111ZZ Fluoroscopy of Multiple Coronary Arteries using Low Osmolar Contrast (ICD-10-PCS; 2017-03-07)
PROC: B2151ZZ Fluoroscopy of Left Heart using Low Osmolar Contrast (ICD-10-PCS; 2017-03-07)
PROC: 4A033BC Measurement of Arterial Pressure, Coronary, Percutaneous Approach (ICD-10-PCS; 2017-03-07)
PROC: B41F1ZZ Fluoroscopy of Right Lower Extremity Arteries using Low Osmolar Contrast (ICD-10-PCS; 2017-03-07)
DX: I21.4 Non-ST elevation (NSTEMI) myocardial infarction (principal); I10 Essential (primary) hypertension; K21.9 Gastro-esophageal reflux disease without esophagitis; K58.0 Irritable bowel syndrome with diarrhea; Z82.49 Family history of ischemic heart disease and other diseases of the circulatory system; I34.0 Nonrheumatic mitral (valve) insufficiency; E78.5 Hyperlipidemia, unspecified; F41.9 Anxiety disorder, unspecified; G47.00 Insomnia, unspecified; E87.6 Hypokalemia; H81.10 Benign paroxysmal vertigo, unspecified ear; E11.9 Type 2 diabetes mellitus without complications
CPT/HCPCS: 71045; 80048; 80053; 80061; 82550; 82552; 83036; 83690; 83735; 84100; 84439; 84443; 84484; 85002; 85025; 85610; 85730; 92928; 93005; 93306; 93458; 93571; 99152; 99153; C1760; C1769; C1874; C1887; C1893; G0269; J0153; J1644; J2250; J3010; J7030; Q9967